=== PATIENT | female | born 1975 | race Caucasian/White ===

== ENCOUNTER 2019-01-30 19:21 | Emergency (ER) | payer MEDICAID ==
[~2019-01-30] VITALS: Ht 154.9 cm; Wt 54.4 kg
[2019-01-30 19:50] VITALS: BP_SYST 148
--- NOTE | 2019-01-30 19:50 | NUR ---
Pt ambulatory to bed 6 for evaluation
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
--- NOTE | 2019-01-30 20:42 | NUR ---
ER Dr. Zaidi at bedside examining patient.
--- NOTE | 2019-01-30 21:20 | NUR ---
Pt to radiology via wheelchair. No signs of acute distress or discomfort noted.
--- NOTE | 2019-01-30 21:28 | NUR ---
Pt back from radiology via wheelchair. No signs of acute distress or discomfort noted.
[2019-01-30 22:26] VITALS: BP_SYST 148
--- NOTE | 2019-01-30 22:26 | NUR ---
Patient given written and verbal discharge instructions and verbalizes understanding. ER MD Dr. Zaidi discussed with patient the results and treatment provided. Patient in stable condition. ID arm band removed. Patient educated on pain management and to follow up with PMD. Pain Scale 0/10. Opportunity for questions provided and answered. Medication side effect fact sheet provided.
== END 2019-01-30 22:26 | disposition home or self-care (01) ==
LOC: SED 19:21
DX: S09.90XA Unspecified injury of head, initial encounter (principal); M54.9 Dorsalgia, unspecified; M54.2 Cervicalgia; M54.6 Pain in thoracic spine; Z88.6 Allergy status to analgesic agent; Z88.5 Allergy status to narcotic agent; V49.9XXA Car occupant (driver) (passenger) injured in unspecified traffic accident, initial encounter; Y93.89 Activity, other specified; Y92.488 Other paved roadways as the place of occurrence of the external cause; Y99.8 Other external cause status
CPT/HCPCS: 70450-TC; 81025; 99284

== ENCOUNTER 2023-11-23 17:11 | Emergency (ER) | payer MEDICAID, OTHER ==
[~2023-11-23] VITALS: Ht 154.9 cm; Wt 54.4 kg
[2023-11-23 17:20] VITALS: BP_SYST 160; PULSE 91; RESP 19; TEMP 97.4; O2SAT 99
[2023-11-23] MEDS: IBUPROFEN 800 MG TABLET PO ONE (17:48)
[2023-11-23] MEDS ORDERED: NAPR-1172 PO (20:23)
[2023-11-23 20:28] VITALS: BP_SYST 147; PULSE 73; RESP 18; TEMP 98.3; O2SAT 99
== END 2023-11-23 20:28 | disposition home or self-care (01) ==
LOC: SED 17:11
DX: M54.50 Low back pain, unspecified (principal); R51.9 Headache, unspecified; Z88.5 Allergy status to narcotic agent; Z88.6 Allergy status to analgesic agent; V89.2XXA Person injured in unspecified motor-vehicle accident, traffic, initial encounter; Y93.89 Activity, other specified; Y92.89 Other specified places as the place of occurrence of the external cause; Y99.8 Other external cause status
CPT/HCPCS: 70450-TC; 71045; 72040; 72100; 81025; 99284